=== PATIENT | female | born 1985 | race Caucasian/White ===

== ENCOUNTER → 2017-07-11 | Day surgery (SDC) | payer OTHER ==
[~2017-07-11] MED LIST: COLACE100 M1 PO; FLEXERIL10 MG PO; IBUPROFEN800 M1 PO; IRON SUPPLEMEN325 MG PO; JUNEL FE 1/20 21 TAB PO; KLOR-CON 1010 ME1 PO; LASIX20 M1 PO; MONTELUKAST SOD10 MG PO; MOTRIN 600 MG600 MG PO; PROAIR HFA0.09 MG/Ac INH; SYMBICORT 160/41 PUF INH; VENTOLIN HFA18 GM INH; ZOFRAN4 M1 PO; ZOFRAN4 M1 SL; ZYRTEC ALLERGY10 MG PO
--- NOTE | 2017-07-11 21:48 | Operative Report ---
Operative/Inv Procedure Report Surgery Date: 07/11/17 Name of Procedure: Suction D&C Pre-Operative Diagnosis: Missed AB at 9 weeks Post-Operative Diagnosis: Same Estimated Blood Loss: 50ml to 100ml Surgeon/Scientific Research Associate: Jordin Malik MD Anesthesia: local monitored anesthesi, block Specimens: Products of conception Complications: None Condition: Stable Operative/Procedure Note Note: The patient was taken to the operating room and placed in dorsal supine position. Anesthesia was then obtained without difficulty. She was then placed in dorsal lithotomy position and prepped and draped in the usual sterile fashion. A sterile speculum was then placed in the patient's vagina. A single- tooth tenaculum was applied to the anterior lip of the cervix. A paracervical block was then performed with 10 mL of 1% lidocaine. The cervix was then serially dilated to accommodate the 10 mm suction curette. Suction curette was then attached to the suction device which was then activated. 2 passes with the suction curette were performed. A moderate amount of products of conception were removed. Gentle sharp curettage was then performed of the uterus and a gritty texture was noted. The suction curette was then reinserted to remove all remaining clots and debris. All instruments were then removed from the patient' s vagina. Excellent hemostasis was noted. All counts were reported to be correct 2. The patient was taken to the recovery room in stable condition. Findings: Pelvic exam revealed a retroverted 10 week size uterus A moderate amount of products of conception Discharge Disposition: Same Day Admissions
== END ==
LOC: STS 07:00
DX: O02.1 Missed abortion (principal); J45.909 Unspecified asthma, uncomplicated
CPT/HCPCS: 36415; J1100; J2001; J2250; J2405; J2790; J3010